=== PATIENT | female | born 1980 | race Caucasian/White ===

== ENCOUNTER 2016-11-28 12:16 | Observation (INO) | payer MEDICAID ==
[~2016-11-28] VITALS: Ht 154.9 cm; Wt 82.5 kg
[2016-11-28 12:19] VITALS: BP 126/70; PULSE 71; RESP 12; TEMP 98.1; O2SAT 99
[2016-11-28] MEDS ORDERED: [UNRECOGNIZED DRUG - REMARK] (12:55)
--- NOTE | 2016-11-28 15:57 | PD ---
HPI Chief Complaint: Respiratory Distress Time Seen by Provider: 15:57 Travel History International Travel<30 days: No Contact w/Intl Traveler<30days: No Traveled to known affect area: No History of Present Illness HPI 36-year-old female presents to the emergency department for evaluation of chest pain. Patient states that she was seen last year with chest pain. She states she also had chest pain approximate 3-5 months ago. She states this episode of chest pain started today and is similar to previous episodes. She also reports paresthesias intermittently to her bilateral hands. Patient states that she did have some paresthesias to her left arm and left leg, but these have resolved. Patient states she feels tired. Patient does not have a primary care physician. She denies any chronic medical problems or taking any prescribed medications. She denies any abdominal pain. No vomiting. She denies . 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 Patient denies any recent surgery or travel. She denies any history of blood clots. She denies being on control. No hemoptysis. No leg edema. PFSH Past Medical History Asthma: No Blood Disorders: No Anxiety: No Depression: No Heart Rhythm Problems: No Cancer: No Cardiovascular Problems: No High Cholesterol: No Chemotherapy: No Chest Pain: Yes Congestive Heart Failure: No COPD: No Diabetes: No Diminished Hearing: No Endocrine: No Genitourinary: No Immune Disorder: No Musculoskeletal: Yes (ARMS HURT) Neurologic: Yes (poss pseudotumor) Psychiatric: No Reproductive: Yes ( BLEEDING) Respiratory: Yes (SOB TODAY) Radiation Therapy: No Sleep Apnea: No Thyroid Disease: No : 0 Para: 4 Miscarriage: 0 : 0 Past Surgical History Other Surgery: No Social History Alcohol Use: No Tobacco Use: No Substance Use: No Allergies-Medications (Allergen,Severity, Reaction): Coded Allergies: Penicillin (Verified Allergy, Intermediate, rash, 11/28/16) Reported Meds & Prescriptions Reported Meds & Active Scripts Active Reported [weight loss pills] Unknown Dose Review of Systems Except as stated in HPI: all other systems reviewed are Neg Physical Exam Narrative GENERAL: Well-developed well-nourished female patient, ambulatory. Afebrile. SKIN: Warm and dry. HEAD: Normocephalic. Atraumatic. EYES: No scleral icterus. No injection or drainage. NECK: Supple, trachea midline. No JVD or lymphadenopathy. CARDIOVASCULAR: Regular rate and rhythm without murmurs, gallops, or rubs. RESPIRATORY: Breath sounds equal bilaterally. No accessory muscle use. Lungs sounds are clear to auscultation. GASTROINTESTINAL: Abdomen soft, non-tender, nondistended. MUSCULOSKELETAL: No cyanosis, or edema. Bilateral upper and lower extremity strength 5/5. All extremities are neurovascularly intact. BACK: Nontender without obvious deformity. No CVA tenderness. Data Data Last Documented VS Vital Signs Date Time Temp Pulse Resp B/P Pulse Ox O2 Delivery O2 Flow Rate FiO2 11/28/16 18:18 68 17 122/62 99 Room Air 11/28/16 12:19 98.1 Orders Electrocardiogram (11/28/16 15:56) Basic Metabolic Panel (Bmp) (11/28/16 15:56) Ckmb (Isoenzyme) Profile (11/28/16 15:56) Complete Blood Count With Diff (11/28/16 15:56) Magnesium (Mg) (11/28/16 15:56) Troponin I (11/28/16 15:56) Chest, Single Ap (11/28/16 15:56) Admit Order (Ed Use Only) (11/28/16 18:22) Labs Laboratory Tests Test 11/28/16 16:09 White Blood Count 9.0 TH/MM3 Red Blood Count 4.70 MIL/MM3 Hemoglobin 13.6 GM/DL Hematocrit 40.1 % Mean Corpuscular Volume 85.3 FL Mean Corpuscular Hemoglobin 28.9 PG Mean Corpuscular Hemoglobin 33.9 % Concent Red Cell Distribution Width 13.9 % Platelet Count 216 TH/MM3 Mean Platelet Volume 8.4 FL Neutrophils (%) (Auto) 77.8 % Lymphocytes (%) (Auto) 16.8 % Monocytes (%) (Auto) 4.9 % Eosinophils (%) (Auto) 0.1 % Basophils (%) (Auto) 0.4 % Neutrophils # (Auto) 7.0 TH/MM3 Lymphocytes # (Auto) 1.5 TH/MM3 Monocytes # (Auto) 0.4 TH/MM3 Eosinophils # (Auto) 0.0 TH/MM3 Basophils # (Auto) 0.0 TH/MM3 CBC Comment DIFF FINAL Differential Comment Sodium Level 140 MEQ/L Potassium Level 4.3 MEQ/L Chloride Level 107 MEQ/L Carbon Dioxide Level 26.4 MEQ/L Anion Gap 7 MEQ/L Blood Urea Nitrogen 11 MG/DL Creatinine 0.78 MG/DL Estimat Glomerular Filtration 84 ML/MIN Rate Random Glucose 91 MG/DL Calcium Level 8.8 MG/DL Magnesium Level 2.2 MG/DL Total Creatine Kinase 62 U/L Troponin I LESS THAN 0.02 NG/ML MDM Medical Decision Making Medical Screen Exam Complete: Yes Emergency Medical Condition: Yes Medical Record Reviewed: Yes Differential Diagnosis Chest wall pain versus anxiety versus ACS versus electrolyte abnormality Narrative Course 36-year-old female presents to the emergency department for evaluation of left- sided chest pain that started yesterday. She reports similar episodes in the past. Patient was seen and in January 2016 for dizziness and. Seizures. She was then seen in July 2016 for chest pain. EKG, CBC, BMP, CK, troponin, chest x-ray are ordered. Workup is initiated in triage. Once a medical bed becomes available, patient will be transferred and care assumed by that provider. Kiera Mckinley Nov 28, 2016 15:57
[2016-11-28 16:19] LABS: BASOPHIL % 0.4 % (0.0-2.0); EOSINOPHIL % 0.1 % (0.0-4.0); HEMATOCRIT 40.1 % (35.0-46.0); HEMO FLAGS DIFF FINAL; LYMPH % 16.8 % (9.0-44.0); LYMPHOCYTE # 1.5 TH/MM3 (1.0-4.8); MEAN CELL VOLUME 85.3 FL (80.0-100.0); MEAN CORPUSCULAR HEMOGLOBIN 28.9 PG (27.0-34.0); MEAN CORPUSCULAR HGB CONC 33.9 % (32.0-36.0); MONO % 4.9 % (0.0-8.0); NEUT % 77.8 % (16.0-70.0); PLATELET COUNT 216 TH/MM3 (150-450); RED CELL DISTRIBUTION WIDTH 13.9 % (11.6-17.2)
--- NOTE | 2016-11-28 16:29 | RADRPT ---
EXAM DATE/TIME: 11/28/2016 16:16 [facility] COMPARISON: CHEST PA & LAT, September 25, 2014, 8:18. CHEST SINGLE AP, August 04, 2016, 3:04. INDICATIONS : Chest pain. MEDICAL HISTORY : None. SURGICAL HISTORY : None. ENCOUNTER: Initial ACUITY: 1 day PAIN SCORE: 5/10 LOCATION: Left chest FINDINGS: A single view of the chest demonstrates the lungs to be symmetrically aerated without evidence of mas s, infiltrate or effusion. The cardiomediastinal contours are unremarkable. Osseous structures are intact. CONCLUSION: 1. No acute cardiopulmonary findings. Jerrell Duggan MD on November 28, 2016 at 16:27 Board Certified Radiologist. This report was verified electronically.
[2016-11-28 16:46] LABS: ANION GAP 7 MEQ/L (5-15); BICARBONATE 26.4 MEQ/L (21.0-32.0); BLOOD UREA NITROGEN 11 MG/DL (7-18); CHLORIDE 107 MEQ/L (98-107); GLOMERULAR FILTRATION RATE 84 ML/MIN (>89); MAGNESIUM 2.2 MG/DL (1.5-2.5); POTASSIUM 4.3 MEQ/L (3.5-5.1); SODIUM (NA) 140 MEQ/L (136-145)
[2016-11-28 16:50] LABS: CREATINE KINASE 62 U/L (26-192)
--- NOTE | 2016-11-28 18:14 | PD ---
Data Data Last Documented VS Vital Signs Date Time Temp Pulse Resp B/P Pulse Ox O2 Delivery O2 Flow Rate FiO2 11/28/16 18:01 69 18 99 Room Air 11/28/16 12:19 98.1 126/70 Orders Electrocardiogram (11/28/16 15:56) Basic Metabolic Panel (Bmp) (11/28/16 15:56) Ckmb (Isoenzyme) Profile (11/28/16 15:56) Complete Blood Count With Diff (11/28/16 15:56) Magnesium (Mg) (11/28/16 15:56) Troponin I (11/28/16 15:56) Chest, Single Ap (11/28/16 15:56) Labs Laboratory Tests Test 11/28/16 16:09 White Blood Count 9.0 TH/MM3 Red Blood Count 4.70 MIL/MM3 Hemoglobin 13.6 GM/DL Hematocrit 40.1 % Mean Corpuscular Volume 85.3 FL Mean Corpuscular Hemoglobin 28.9 PG Mean Corpuscular Hemoglobin 33.9 % Concent Red Cell Distribution Width 13.9 % Platelet Count 216 TH/MM3 Mean Platelet Volume 8.4 FL Neutrophils (%) (Auto) 77.8 % Lymphocytes (%) (Auto) 16.8 % Monocytes (%) (Auto) 4.9 % Eosinophils (%) (Auto) 0.1 % Basophils (%) (Auto) 0.4 % Neutrophils # (Auto) 7.0 TH/MM3 Lymphocytes # (Auto) 1.5 TH/MM3 Monocytes # (Auto) 0.4 TH/MM3 Eosinophils # (Auto) 0.0 TH/MM3 Basophils # (Auto) 0.0 TH/MM3 CBC Comment DIFF FINAL Differential Comment Sodium Level 140 MEQ/L Potassium Level 4.3 MEQ/L Chloride Level 107 MEQ/L Carbon Dioxide Level 26.4 MEQ/L Anion Gap 7 MEQ/L Blood Urea Nitrogen 11 MG/DL Creatinine 0.78 MG/DL Estimat Glomerular Filtration 84 ML/MIN Rate Random Glucose 91 MG/DL Calcium Level 8.8 MG/DL Magnesium Level 2.2 MG/DL Total Creatine Kinase 62 U/L Troponin I LESS THAN 0.02 NG/ML MDM Supervised Visit with OLIVIA: Yes Narrative Course I have reviewed the patient's electronic medical record. I reviewed her July ER visit for chest pain. There is documentation that the patient reported having a normal stress test within the last year. Using public works commissioner, she totally contradicts that and says she's never had stress testing. She also denies having a primary physician. Reportedly her father of an [place] at age 42. She describes a sternal area pressure and heaviness that radiates to her left shoulder. Her workup appears entirely negative but given this family history and repeated visits for chest pain without any definitive testing that I can identify, I am going to make her a 23 hour observation in the chest pain center to rule out cardiac cause of her systems. Diagnosis Primary Impression: Chest pain Qualified Code: R07.2 - Precordial pain Admitting Information Admitting Physician Requests: Observation Myles Vasquez MD Nov 28, 2016 18:14
[2016-11-28 18:18] VITALS: BP 122/62; PULSE 68; RESP 17; O2SAT 99
[2016-11-28] MEDS ORDERED: ONDANSETRON HCL 4 MG/2 ML VIAL IV PRN (18:45)
[2016-11-28] MEDS ORDERED: SODIUM CHLORIDE 0.9% FLUSH 5 ML FLUSH IVF PRN (18:45)
[2016-11-28 20:08] VITALS: BP 125/76; PULSE 58; RESP 18; TEMP 98.6; O2SAT 100
[2016-11-28 20:10] VITALS: PULSE 56
[2016-11-28 20:11] LABS: CREATINE KINASE 52 U/L (26-192)
[2016-11-28 23:02] LABS: CREATINE KINASE 48 U/L (26-192)
[2016-11-28 23:19] VITALS: PULSE 60
[2016-11-28] MEDS: SODIUM CHLORIDE 0.9% FLUSH 5 ML FLUSH IVF SCH (23:22)
[2016-11-29] VITALS (8 sets, daily range): BP systolic 84–103; BP diastolic 46–63; PULSE 54–72; RESP 18–20; TEMP 97.7–98.4; O2SAT 96–100
[2016-11-29] MEDS ORDERED: ACETAMINOPHEN 500 MG CPLT PO PRN (07:30)
[2016-11-29] MEDS ORDERED: NITROGLYCERIN 0.4 MG SL 25 TABS/BTL SL PRN (07:30)
[2016-11-29] MEDS: SODIUM CHLORIDE 0.9% FLUSH 5 ML FLUSH IVF SCH (08:07)
[2016-11-29] MEDS ORDERED: ASPIRIN 325 MG TAB PO SCH ×2 (09:00)
--- NOTE | 2016-11-29 09:22 | HHI.HP ---
HPI Primary Care Physician Primary Care Physician in [place]. Chief Complaint Chest pain History of Present Illness 36-year-old patient presents to the emergency room for further evaluation of chest pressure and palpitations. While at work yesterday she drank a cup of coffee and a half an hour later she ate a pear and took her "diet pill." Approximately 30 minutes after taking diet pill she developed chest pressure and palpitations. She left work went home to rest. Continued to experience chest discomfort lasted approximately 3 hours. She was mildly short of breath, no nausea or diaphoresis. No relieving factors. No radiation of her chest discomfort. She has had chest pain in the past, however past episodes did not last as long as yesterday's episode. 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 Review of Systems General: No fatigue,weakness, fever, chills, or recent illness. Reports taking a diet pill prescribed by her primary care provider. Has lost approximately 40 pounds with diet pill, since July. She takes half a tablet as she stay " hole tablet is too much for me. HEENT: No POWERS, no vision changes, no nasal congestion or drainage, no dysphasia CV: Chest pressure and palpitations as stated above. No intermittent leg pain or dizziness RESP: Mild SOB during yesterday's episode. Shortness of breath has resolved. No cough cough, wheeze, or recent upper respiratory infection GI: No nausea or vomiting, bowel changes, diarrhea, constipation, pain, distention, melena, blood in the stool : No dysuria, urgency, frequency, hematuria, or history of kidney stones EXT: No lower leg edema, no parathesias MS: No discomfort or change in ROM NEURO: No change in memory, dizziness, difficulty with balance, LOC, motor/ sensory deficits PSYCH: No anxiety, depression, suicidal ideation Past Family Social History Allergies: Coded Allergies: Penicillin (Verified Allergy, Intermediate, rash, 11/28/16) Reported Medications Reports taking a "diet pill" prescribed by her primary care physician. However his been taking only half of prescribed tablet. No vitamin, supplements, [id number] medications Active Ordered Medications Current Medications Medications (Trade) Dose Ordered Sig/Jas Route Start Time Stop Time Status Last Admin (Zofran Inj) 4 mg Q6H PRN IV 11/28/16 18:45 (Tylenol) 500 mg Q4H PRN PO 11/29/16 07:30 (Nitrostat Sl) 0.4 mg Q5M PRN SL 11/29/16 07:30 (Aspirin) 325 mg DAILY PO 11/29/16 09:00 11/29/16 08:07 Family History Father had MA at age 42 he was diabetic. Mother of cancer. Sister cancer one year ago. Social History She is , has 4 children ages 3-18. 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 She reports being sedentary. She does not smoke, denies alcohol or illegal drug use. No known hypertension, diabetes, or hyperlipidemia. Physical Exam Vital Signs Vital Signs Date Time Temp Pulse Resp B/P Pulse Ox O2 Delivery O2 Flow Rate FiO2 11/29/16 07:24 98.0 60 20 84/46 96 11/29/16 05:16 98.3 54 18 103/63 99 11/29/16 04:24 60 11/29/16 04:16 100 11/29/16 00:29 98.4 59 18 101/52 100 11/28/16 23:19 60 11/28/16 20:10 56 11/28/16 20:08 98.6 58 18 125/76 100 11/28/16 18:18 68 17 122/62 99 Room Air 11/28/16 18:01 69 18 99 Room Air 11/28/16 12:19 98.1 71 12 126/70 99 Room Air Physical Exam GENERAL: Alert WN, WD, NAD, pleasant, female HEAD: NC, AT EYES: Sclera clear, conjunctiva without injection, pupils equal and round ENT: Mucous membranes pink and moist NECK: Supple, no masses, trachea midline CV: RRR, without murmur, rub, gallop, no JVD, S1-S2 no S3-S4. No carotid bruits RESP: Clear lungs throughout bilateral, no crackles, wheeze, rhonchi, symmetrical chest rise, nonlabored, able to speak in full sentences ABD: Soft, NT, ND, no masses, positive bowel tones BACK: no scoliosis EXT: Pulses +24, no dependent edema MS: Normal tone 4 extremities, nontender, no obvious deformities, full range of motion NEURO: CN II through CN XII grossly intact, motor strength 5/5, gait WNL PSYCH: A+O 3, pleasant affect, appropriate speech, appropriate mood and affect , insight and judgment SKIN: Normal turgor, normal texture, no lesions, no rashes, brisk cap refill, even hair distribution Laboratory Laboratory Tests Test 11/28/16 11/28/16 11/28/16 16:09 19:25 22:20 White Blood Count 9.0 Red Blood Count 4.70 Hemoglobin 13.6 Hematocrit 40.1 Mean Corpuscular Volume 85.3 Mean Corpuscular Hemoglobin 28.9 Mean Corpuscular Hemoglobin 33.9 Concent Red Cell Distribution Width 13.9 Platelet Count 216 Mean Platelet Volume 8.4 Neutrophils (%) (Auto) 77.8 Lymphocytes (%) (Auto) 16.8 Monocytes (%) (Auto) 4.9 Eosinophils (%) (Auto) 0.1 Basophils (%) (Auto) 0.4 Neutrophils # (Auto) 7.0 Lymphocytes # (Auto) 1.5 Monocytes # (Auto) 0.4 Eosinophils # (Auto) 0.0 Basophils # (Auto) 0.0 CBC Comment DIFF FINAL Differential Comment Sodium Level 140 Potassium Level 4.3 Chloride Level 107 Carbon Dioxide Level 26.4 Anion Gap 7 Blood Urea Nitrogen 11 Creatinine 0.78 Estimat Glomerular Filtration 84 Rate Random Glucose 91 Calcium Level 8.8 Magnesium Level 2.2 Total Creatine Kinase 62 52 48 Troponin I LESS THAN 0.02 LESS THAN 0.02 LESS THAN 0.02 Result Diagram: 11/28/16 1609 11/28/16 1609 Imaging Last Impressions Chest X-Ray 11/28/16 1556 Signed Impressions: Service Date/Time: Monday, November 28, 2016 16:16 - CONCLUSION: 1. No acute cardiopulmonary findings. Jerrell Duggan MD Course EKGs Normal sinus rhythm, normal access, with no ST or T-segment changes Assessment and Plan Assessment and Plan #1 Chest painpatient admitted to the chest pain center. She was ruled out with 3 sets of EKGs, cardiac enzymes, and monitor throughout evening. Was seen and evaluated by Dr. Toribio Garcia. Discussed with patient next step would be to complete an exercise stress test to reassure her her chest discomfort is not cardiac in nature. She is agreeable to this plan of care. Naturally if stress test is unremarkable she'll be later discharged this morning. She is encouraged to keep scheduled appointment with primary care provider in 2 weeks to discuss further instruction regarding her diet pill prescription. She is agreeable to this plan of care. Marjorie Pino Nov 29, 2016 09:22
--- NOTE | 2016-11-29 10:05 | HHI.DCPOC ---
Discharge Care Plan Diagnosis: (1) Atypical chest pain Goals to Promote Your Health * To prevent worsening of your condition and complications * To maintain your health at the optimal level Directions to Meet Your Goals Take your medications as prescribed Follow your dietary instruction Follow activity as directed Keep your appointments as scheduled Take your immunizations and boosters as scheduled If your symptoms worsen call your PCP, if no PCP go to Urgent Care Center or Emergency Room Smoking is Dangerous to Your Health. Avoid second hand smoke Call the 24-hour hour crisis hotline for domestic abuse at Marjorie Pino Nov 29, 2016 10:04
--- NOTE | 2016-12-01 17:01 | EKG ---
Date Performed: 11/28/2016 Time Performed: 22:27:26 PTAGE: 36 years EKG: SINUS BRADYCARDIA BORDERLINE ECG PREVIOUS TRACING : 11/28/2016 19.24 Since previous tracing, no significant change noted DOCTOR: Toribio Garcia Interpretating Date/Time 12/01/2016 16:55:45
--- NOTE | 2016-12-01 17:02 | EKG ---
Date Performed: 11/28/2016 Time Performed: 16:19:58 PTAGE: 36 years EKG: Sinus rhythm BORDERLINE ECG PREVIOUS TRACING : 08/04/2016 01.55 Since previous tracing, no significant change noted DOCTOR: Toribio Garcia Interpretating Date/Time 12/01/2016 16:56:26
--- NOTE | 2016-12-01 17:02 | EKG ---
Date Performed: 11/28/2016 Time Performed: 19:24:38 PTAGE: 36 years EKG: Sinus rhythm WITH SINUS ARRHYTHMIA NORMAL ECG PREVIOUS TRACING : 11/28/2016 16.19 Since previous tracing, no significant change noted DOCTOR: Toribio Garcia Interpretating Date/Time 12/01/2016 16:56:11
--- NOTE | 2016-12-01 17:16 | TR ---
Date Performed: 11/29/2016 Time Performed: 09:31:55 DOCTOR: Toribio Garcia DRUG LIST: CLINICAL HISTORY: REASON FOR TEST: REASON FOR ENDING: OBSERVATION: CONCLUSION: Robert protocol completed. Stopped sec to reaching target heart rate and leg fatigue. Maximum JC=845 Target HR Achieved=86.0% Maximum XP=897/62 Total Exercise Time=11:49. No reprod chest pain. Good exercise tolerance. No ectopy. No st t seg changes to sugg ischemia. Normal bp response. Recovery quick and unremarkable. COMMENTS: Patient exercised using the Robert protocol. No electrocardiographic changes were seen to suggest ischemia. Hemodynamic response to exercise was normal. No significant arrhythmia was prese nt.
== END 2016-11-29 15:23 | disposition home or self-care (01) ==
LOC: NEPE 12:16 → NEDA 18:32 → NEPHCDU 19:53 → NEDA 21:30
PROVIDERS: ADMIT Internal Medicine Interventional Cardiology; ATTEND Internal Medicine Interventional Cardiology
DX: R07.89 Other chest pain (principal); R53.83 Other fatigue; R06.02 Shortness of breath; M79.602 Pain in left arm; M79.601 Pain in right arm; Z82.49 Family history of ischemic heart disease and other diseases of the circulatory system; Z80.9 Family history of malignant neoplasm, unspecified
CPT/HCPCS: 71010; 80048; 82550; 83735; 84484; 85025; 93005; 93017; 99285; G0378

== ENCOUNTER 2017-08-01 17:29 | Emergency (ER) | payer MEDICAID ==
[~2017-08-01] VITALS: Ht 154.9 cm; Wt 92.0 kg
[~2017-08-01 17:29] MED LIST: [UNRECOGNIZED DRUG - REMARK]
[2017-08-01 17:31] VITALS: BP 166/72; PULSE 50; RESP 16; TEMP 98.3; O2SAT 100
[2017-08-01 18:04] LABS: AUTOMATED NEUTROPHIL # 2.3 TH/MM3 (1.8-7.7); BASOPHIL % 0.7 % (0.0-2.0); EOSINOPHIL # 0.1 TH/MM3 (0-0.4); EOSINOPHIL % 1.1 % (0.0-4.0); HEMO FLAGS DIFF FINAL; LYMPH % 47.4 % (9.0-44.0); LYMPHOCYTE # 2.5 TH/MM3 (1.0-4.8); MEAN CELL VOLUME 87.2 FL (80.0-100.0); MEAN CORPUSCULAR HEMOGLOBIN 29.4 PG (27.0-34.0); MEAN CORPUSCULAR HGB CONC 33.7 % (32.0-36.0); MONO % 7.6 % (0.0-8.0); NEUT % 43.2 % (16.0-70.0); PLATELET COUNT 200 TH/MM3 (150-450); RED BLOOD COUNT 4.47 MIL/MM3 (4.00-5.30); WHITE BLOOD COUNT 5.3 TH/MM3 (4.0-11.0)
[2017-08-01 18:29] LABS: ANION GAP 6 MEQ/L (5-15); AST (GOT) 17 U/L (15-37); BICARBONATE 27.9 MEQ/L (21.0-32.0); BLOOD UREA NITROGEN 8 MG/DL (7-18); CHLORIDE 107 MEQ/L (98-107); GLOMERULAR FILTRATION RATE 80 ML/MIN (>89); POTASSIUM 3.8 MEQ/L (3.5-5.1); SODIUM (NA) 141 MEQ/L (136-145)
[2017-08-01 18:31] LABS: ALT (GPT) 31 U/L (10-53)
[2017-08-01 18:33] LABS: ALKALINE PHOSPHATASE 61 U/L (45-117); TOTAL BILIRUBIN ADULT 0.3 MG/DL (0.2-1.0)
--- NOTE | 2017-08-01 20:57 | PD ---
HPI Chief Complaint: Dizziness Time Seen by Provider: 20:45 Travel History International Travel<30 days: No Contact w/Intl Traveler<30days: No Traveled to known affect area: No History of Present Illness HPI The patient is Vincentian-speaking and prefers to use her daughter for translation. 37-year-old female here for evaluation of chest pain, lightheadedness, and dizziness. Patient reports intermittent episodes of the aforementioned symptoms over the last 2 days. She reports that her chest pain is substernal and is exertional. She becomes nauseous. She describes the pain as burning and pressure-like. No known history of cardiac disease. Her father of a heart attack at the age of 47. No dyspnea. No abdominal pain. Currently the chest pain is minimal. She smokes about 6 or 7 cigarettes daily. PFSH Past Medical History Asthma: No Blood Disorders: No Anxiety: No Depression: No Heart Rhythm Problems: No Cancer: No Cardiovascular Problems: No High Cholesterol: No Chemotherapy: No Chest Pain: Yes Congestive Heart Failure: No COPD: No Diabetes: No Diminished Hearing: No Endocrine: No Genitourinary: No Immune Disorder: No Musculoskeletal: Yes (ARMS HURT) Neurologic: Yes (poss pseudotumor) Psychiatric: No Reproductive: Yes ( BLEEDING) Respiratory: Yes (SOB TODAY) Radiation Therapy: No Sleep Apnea: No Thyroid Disease: No ?: Not LMP: ONE WEEK AGO : 4 Para: 4 Miscarriage: 0 : 0 Past Surgical History Other Surgery: No Social History Alcohol Use: No Tobacco Use: No Substance Use: No Allergies-Medications (Allergen,Severity, Reaction): Coded Allergies: penicillin G (Unverified Allergy, Intermediate, rash, 05/29/17) Reported Meds & Prescriptions Reported Meds & Active Scripts Active Reported [weight loss pills] Unknown Dose Review of Systems Except as stated in HPI: all other systems reviewed are Neg Physical Exam Narrative GENERAL: Well-developed, well-nourished, overweight, comfortable, no apparent distress. SKIN: Focused skin assessment warm/dry. HEAD: Atraumatic. Normocephalic. EYES: Pupils equal and round. No scleral icterus. No injection or drainage. ENT: Mucous membranes pink and moist. NECK: Trachea midline. No JVD. CARDIOVASCULAR: Regular rate and rhythm. No murmur appreciated. RESPIRATORY: No accessory muscle use. Clear to auscultation. Breath sounds equal bilaterally. GASTROINTESTINAL: Abdomen soft, non-tender, nondistended. MUSCULOSKELETAL: No obvious deformities. No clubbing. No cyanosis. No edema. NEUROLOGICAL: Awake and alert. No obvious cranial nerve deficits. Motor grossly within normal limits. Normal speech. PSYCHIATRIC: Appropriate mood and affect; insight and judgment normal. Data Data Last Documented VS Vital Signs Date Time Temp Pulse Resp B/P (MAP) Pulse Ox O2 Delivery O2 Flow Rate FiO2 08/01/17 17:31 98.3 50 16 166/72 (103) 100 Room Air Orders Orders Electrocardiogram (08/01/17 17:45) Complete Blood Count With Diff (08/01/17 17:45) Comprehensive Metabolic Panel (08/01/17 17:45) Iv Access Insert/Monitor (08/01/17 17:45) Ckmb (Isoenzyme) Profile (08/01/17 20:51) Troponin I (08/01/17 20:51) Lipase (08/01/17 20:51) Chest, Single Ap (08/01/17 20:51) Aspirin Chew (Aspirin Chew) (08/01/17 21:00) Beta Hcg (Quant/Titer) (08/01/17 20:51) Urinalysis - C+S If Indicated (08/01/17 20:51) Al-Mag Hy-Si 40-40-4 Mg/Ml Liq (Mag-Al P (08/01/17 21:00) Lidocaine 2% Viscous (Xylocaine 2% Visco (08/01/17 21:00) Labs Laboratory Tests Test 08/01/17 17:53 08/01/17 21:00 White Blood Count 5.3 TH/MM3 Red Blood Count 4.47 MIL/MM3 Hemoglobin 13.1 GM/DL Hematocrit 39.0 % Mean Corpuscular Volume 87.2 FL Mean Corpuscular Hemoglobin 29.4 PG Mean Corpuscular Hemoglobin Concent 33.7 % Red Cell Distribution Width 14.0 % Platelet Count 200 TH/MM3 Mean Platelet Volume 8.4 FL Neutrophils (%) (Auto) 43.2 % Lymphocytes (%) (Auto) 47.4 % Monocytes (%) (Auto) 7.6 % Eosinophils (%) (Auto) 1.1 % Basophils (%) (Auto) 0.7 % Neutrophils # (Auto) 2.3 TH/MM3 Lymphocytes # (Auto) 2.5 TH/MM3 Monocytes # (Auto) 0.4 TH/MM3 Eosinophils # (Auto) 0.1 TH/MM3 Basophils # (Auto) 0.0 TH/MM3 CBC Comment DIFF FINAL Differential Comment Blood Urea Nitrogen 8 MG/DL Creatinine 0.81 MG/DL Random Glucose 107 MG/DL Total Protein 7.4 GM/DL Albumin 3.8 GM/DL Calcium Level 9.0 MG/DL Alkaline Phosphatase 61 U/L Aspartate Amino Transf (AST/SGOT) 17 U/L Alanine Aminotransferase (ALT/SGPT) 31 U/L Total Bilirubin 0.3 MG/DL Sodium Level 141 MEQ/L Potassium Level 3.8 MEQ/L Chloride Level 107 MEQ/L Carbon Dioxide Level 27.9 MEQ/L Anion Gap 6 MEQ/L Estimat Glomerular Filtration Rate 80 ML/MIN Total Creatine Kinase 56 U/L Troponin I LESS THAN 0.02 NG/ML Lipase 168 U/L Human Chorionic Gonadotropin, Quant LESS THAN 1 MIU/ML Urine Color YELLOW Urine Turbidity HAZY Urine pH 7.0 Urine Specific [place] 1.010 Urine Protein NEG mg/dL Urine Glucose (UA) NEG mg/dL Urine Ketones NEG mg/dL Urine Occult Blood NEG Urine Nitrite NEG Urine Bilirubin NEG Urine Urobilinogen LESS THAN 2.0 MG/DL Urine Leukocyte Esterase NEG Urine RBC LESS THAN 1 /hpf Urine WBC LESS THAN 1 /hpf Urine Squamous Epithelial Cells 2 /hpf Urine Bacteria RARE /hpf Urine Mucus FEW /lpf Microscopic Urinalysis Comment CULT NOT INDICATED MDM Medical Decision Making Medical Screen Exam Complete: Yes Emergency Medical Condition: Yes Interpretation(s) EKG: Sinus, rate 48, normal axis, normal intervals, no acute ischemic abnormality. Differential Diagnosis ACS, pneumothorax, pericarditis, PE, pneumonia, GERD, pancreatitis, gastritis, symptomatic bradycardia Narrative Course Initial vital signs show heart rate 50, blood pressure 166/72, pulse ox 100% on room air, oral temp of 98.3F. CBC is unremarkable. CMP is unremarkable. Lipase is 168. Beta hCG is negative. Cardiac enzymes are negative. Chest x-ray: No acute disease. No significant change has occurred. The patient was given a GI cocktail and reports that her pain/burning sensation in her chest has resolved. Chart review shows that the patient was admitted to the chest pain center in November of this year and had a normal exercise stress test. I do not believe her chest pain is cardiac in nature. Patient also reports that she no longer feels dizzy. She hasn't 0.0 with a primary care physician tomorrow. I told her I would like to admit her again to the chest pain center, however she prefers to be discharged home and follow-up with her primary care physician tomorrow. She was informed on when to return to the emergency department. She verbalizes understanding and agreement with plan. Diagnosis Primary Impression: Atypical chest pain Referrals: Primary Care Physician 1 day Additional Instructions: Follow-up with your primary care physician tomorrow as scheduled. Return to the emergency department for worsening symptoms or any other concerns. Disposition: 01 DISCHARGE HOME Condition: Stable Sergio Li MD Aug 01, 2017 20:57
[2017-08-01] MEDS ORDERED: LIDOCAINE VISCOUS 2% SOLN 15 ML UDC PO ONE (21:00)
[2017-08-01] MEDS ORDERED: ASPIRIN 81 MG CHEW TAB PO ONE (21:00)
[2017-08-01] MEDS ORDERED: ALUMINUM/MAGNESIUM/SIMETH 30 ML CUP PO ONE (21:00)
--- NOTE | 2017-08-01 21:14 | RADRPT ---
EXAM DATE/TIME: 08/01/2017 20:51 [facility] COMPARISON: CHEST SINGLE AP, November 28, 2016, 16:16. INDICATIONS : Chest pain. MEDICAL HISTORY : None. SURGICAL HISTORY : None. ENCOUNTER: Initial ACUITY: 1 day PAIN SCORE: 10 LOCATION: Bilateral chest FINDINGS: A single view of the chest demonstrates the lungs to be symmetrically aerated without evidence of mas s, infiltrate or effusion. The cardiomediastinal contours are unremarkable. Osseous structures are intact. CONCLUSION: No acute disease. No significant change has occurred. Richard Collins MD on August 01, 2017 at 21:12 Board Certified Radiologist. This report was verified electronically.
[2017-08-01 21:25] LABS: BACTERIA, URINE RARE /hpf; BLOOD, URINE NEG (NEG); COMMENT (UR) CULT NOT INDICATED; CULTURE IF INDICATED CULT NOT INDICATED; GLUCOSE,URINE NEG (NEG); KETONE, URINE NEG (NEG); MUCUS URINE FEW /lpf (OCC); NITRITE,URINE NEG (NEG); SQUAMOUS EPITHELIAL CELL URINE 2 /hpf (0-5); URINE COLOR YELLOW (YELLW/STRAW)
[2017-08-01 21:49] LABS: BETA HCG QUANT LESS THAN 1 MIU/ML (0-5)
[2017-08-01 22:01] LABS: CREATINE KINASE 56 U/L (26-192)
--- NOTE | 2017-08-02 11:33 | EKG ---
Date Performed: 08/01/2017 Time Performed: 17:49:50 PTAGE: 37 years EKG: SINUS BRADYCARDIA BORDERLINE ECG Compared to prior tracing no significant change PREVIOUS TRACING : 11/28/2016 22.27 DOCTOR: Todd Jain Interpretating Date/Time 08/02/2017 11:29:09
[2017-08-10] MEDS ORDERED: ZANT150T2 PO (12:11)
[2017-08-10] MEDS ORDERED: TYLETAB34 PO (12:11)
== END 2017-08-01 22:21 | disposition home or self-care (01) ==
LOC: NEPD 17:29
DX: R07.89 Other chest pain (principal); R94.31 Abnormal electrocardiogram [ECG] [EKG]
CPT/HCPCS: 71010; 80053; 81001; 82550; 83690; 84484; 84702; 85025; 93005; 99285

== ENCOUNTER 2017-08-10 09:27 | Emergency (ER) | payer MEDICAID ==
[~2017-08-10] VITALS: Ht 160 cm; Wt 91.0 kg
[2017-08-10 09:28] VITALS: BP 133/66; PULSE 53; RESP 15; TEMP 98.8; O2SAT 99
[2017-08-10 09:42] VITALS: BP 142/72; PULSE 55; RESP 17; TEMP 99.2; O2SAT 99
[2017-08-10] MEDS ORDERED: SODIUM CHLOR 0.9% 1000 ML INJ 1,000 ML IV SCH ×2 (09:58)
[2017-08-10] MEDS ORDERED: KETOROLAC TROMETHAMINE 30 MG/ML (IVP) VIAL IVP ONE ×2 (10:00)
[2017-08-10] MEDS ORDERED: ONDANSETRON HCL 4 MG/2 ML VIAL IVP ONE ×2 (10:00)
[2017-08-10] MEDS ORDERED: SODIUM CHLORIDE 0.9% FLUSH 10 ML FLUSH IV FLUSH PRN ×2 (10:00)
[2017-08-10] MEDS ORDERED: MORPHINE SULFATE 4 MG/ML INJ IV PUSH ONE ×2 (10:00)
--- NOTE | 2017-08-10 10:12 | PD ---
HPI Chief Complaint: GI Complaint Time Seen by Provider: 09:52 Travel History International Travel<30 days: No Contact w/Intl Traveler<30days: No Traveled to known affect area: No History of Present Illness HPI The patient is a 37-year-old female who presents to the emergency department for left-sided chest pain and upper abdominal pain. The patient has a history of recurrent left-sided chest pain and upper abdominal pain, was recently admitted to the hospital for over 2017 for similar symptoms and underwent a stress test was negative. The patient states she's had some intermittent pain over the last week, was seen in the emergency department one week ago, however, her symptoms have progressed. The pain is located over the left aspect of the chest in the lower part, as well as the left upper abdomen. She does complain of mild nausea without any vomiting. She also complains of intermittent shortness of breath secondary to the pain. She denies any history of pulmonary embolism or previous DVT. Symptoms are moderate without any alleviating or exacerbating factors. She denies any known history of gallstones denies any fever, chills, or sweats. PFSH Past Medical History Medical History: Denies Significant Hx Asthma: No Blood Disorders: No Anxiety: No Depression: No Heart Rhythm Problems: No Cancer: No Cardiovascular Problems: No High Cholesterol: No Chemotherapy: No Chest Pain: Yes Congestive Heart Failure: No COPD: No Diabetes: No Diminished Hearing: No Endocrine: No Genitourinary: No Immune Disorder: No Musculoskeletal: Yes (ARMS HURT) Neurologic: Yes (poss pseudotumor) Psychiatric: No Reproductive: Yes ( BLEEDING) Radiation Therapy: No Sleep Apnea: No Thyroid Disease: No ?: Unknown : 4 Para: 4 Miscarriage: 0 : 0 Past Surgical History Surgical History: No Previous Surgery Other Surgery: No Social History Alcohol Use: No Tobacco Use: No Substance Use: No Allergies-Medications (Allergen,Severity, Reaction): Coded Allergies: penicillin G (Unverified Allergy, Intermediate, rash, 05/29/17) Reported Meds & Prescriptions Reported Meds & Active Scripts Active No Active Prescriptions or Reported Medications Review of Systems Except as stated in HPI: all other systems reviewed are Neg General / Constitutional: No: Fever Cardiovascular: Positive: Chest Pain or Discomfort Respiratory: Positive: Shortness of Breath Gastrointestinal: Positive: Nausea, Abdominal Pain, No: Vomiting Genitourinary: No: Dysuria Physical Exam Narrative GENERAL: Awake, alert, pleasant 37-year-old female appears her stated age and is in no acute respiratory distress. SKIN: Focused skin assessment warm/dry. HEAD: Atraumatic. Normocephalic. EYES: Pupils equal and round. No scleral icterus. No injection or drainage. ENT: No nasal bleeding or discharge. Mucous membranes pink and moist. NECK: Trachea midline. No JVD. CARDIOVASCULAR: Regular rate and rhythm. No murmur appreciated. No palpation left chest wall. RESPIRATORY: No accessory muscle use. Clear to auscultation. Breath sounds equal bilaterally. GASTROINTESTINAL: Abdomen soft, tender palpation epigastrium and left upper quadrant. Back: No CVA tenderness. MUSCULOSKELETAL: No obvious deformities. No clubbing. No cyanosis. No edema. NEUROLOGICAL: Awake and alert. No obvious cranial nerve deficits. Motor grossly within normal limits. Normal speech. PSYCHIATRIC: Appropriate mood and affect; insight and judgment normal. Data Data Last Documented VS Vital Signs Date Time Temp Pulse Resp B/P (MAP) Pulse Ox O2 Delivery O2 Flow Rate FiO2 08/10/17 10:48 99 Room Air 08/10/17 09:42 99.2 55 17 Orders Orders Complete Blood Count With Diff (08/10/17 09:58) Comprehensive Metabolic Panel (08/10/17 09:58) Lipase (08/10/17 09:58) Ct Abd/Pel W/O Iv Contrast (08/10/17 09:58) Iv Access Insert/Monitor (08/10/17 09:58) Ecg Monitoring (08/10/17 09:58) Oximetry (08/10/17 09:58) Morphine Inj (Morphine Inj) (08/10/17 10:00) Ondansetron Inj (Zofran Inj) (08/10/17 10:00) Sodium Chlor 0.9% 1000 Ml Inj (Ns 1000 M (08/10/17 09:58) Sodium Chloride 0.9% Flush (Ns Flush) (08/10/17 10:00) Ketorolac Inj (Toradol Inj) (08/10/17 10:00) Troponin I (08/10/17 09:58) Creatine Kinase (Cpk) (08/10/17 09:58) Labs Laboratory Tests Test 08/10/17 10:10 White Blood Count 6.0 TH/MM3 Red Blood Count 4.67 MIL/MM3 Hemoglobin 13.6 GM/DL Hematocrit 40.6 % Mean Corpuscular Volume 87.1 FL Mean Corpuscular Hemoglobin 29.2 PG Mean Corpuscular Hemoglobin Concent 33.6 % Red Cell Distribution Width 14.2 % Platelet Count 203 TH/MM3 Mean Platelet Volume 8.5 FL Neutrophils (%) (Auto) 47.5 % Lymphocytes (%) (Auto) 43.2 % Monocytes (%) (Auto) 7.7 % Eosinophils (%) (Auto) 1.1 % Basophils (%) (Auto) 0.5 % Neutrophils # (Auto) 2.9 TH/MM3 Lymphocytes # (Auto) 2.6 TH/MM3 Monocytes # (Auto) 0.5 TH/MM3 Eosinophils # (Auto) 0.1 TH/MM3 Basophils # (Auto) 0.0 TH/MM3 CBC Comment DIFF FINAL Differential Comment Blood Urea Nitrogen 11 MG/DL Creatinine 0.75 MG/DL Random Glucose 94 MG/DL Total Protein 7.7 GM/DL Albumin 3.8 GM/DL Calcium Level 8.9 MG/DL Alkaline Phosphatase 71 U/L Aspartate Amino Transf (AST/SGOT) 59 U/L Alanine Aminotransferase (ALT/SGPT) 104 U/L Total Bilirubin 0.3 MG/DL Sodium Level 140 MEQ/L Potassium Level 4.1 MEQ/L Chloride Level 107 MEQ/L Carbon Dioxide Level 26.1 MEQ/L Anion Gap 7 MEQ/L Estimat Glomerular Filtration Rate 87 ML/MIN Total Creatine Kinase 51 U/L Troponin I LESS THAN 0.02 NG/ML Lipase 126 U/L MDM Medical Decision Making Medical Screen Exam Complete: Yes Emergency Medical Condition: Yes Medical Record Reviewed: Yes Interpretation(s) EKG reveals sinus bradycardia with a heart rate of 52. No ischemic changes noted. Last Impressions Abdomen/Pelvis CT 08/10/17 0958 Signed Impressions: Service Date/Time: Thursday, August 10, 2017 10:13 - CONCLUSION: Negative noncontrast CT abdomen/pelvis. Lenin Espinoza MD Laboratory Tests Test 08/10/17 10:10 White Blood Count 6.0 TH/MM3 Red Blood Count 4.67 MIL/MM3 Hemoglobin 13.6 GM/DL Hematocrit 40.6 % Mean Corpuscular Volume 87.1 FL Mean Corpuscular Hemoglobin 29.2 PG Mean Corpuscular Hemoglobin Concent 33.6 % Red Cell Distribution Width 14.2 % Platelet Count 203 TH/MM3 Mean Platelet Volume 8.5 FL Neutrophils (%) (Auto) 47.5 % Lymphocytes (%) (Auto) 43.2 % Monocytes (%) (Auto) 7.7 % Eosinophils (%) (Auto) 1.1 % Basophils (%) (Auto) 0.5 % Neutrophils # (Auto) 2.9 TH/MM3 Lymphocytes # (Auto) 2.6 TH/MM3 Monocytes # (Auto) 0.5 TH/MM3 Eosinophils # (Auto) 0.1 TH/MM3 Basophils # (Auto) 0.0 TH/MM3 CBC Comment DIFF FINAL Differential Comment Blood Urea Nitrogen 11 MG/DL Creatinine 0.75 MG/DL Random Glucose 94 MG/DL Total Protein 7.7 GM/DL Albumin 3.8 GM/DL Calcium Level 8.9 MG/DL Alkaline Phosphatase 71 U/L Aspartate Amino Transf (AST/SGOT) 59 U/L Alanine Aminotransferase (ALT/SGPT) 104 U/L Total Bilirubin 0.3 MG/DL Sodium Level 140 MEQ/L Potassium Level 4.1 MEQ/L Chloride Level 107 MEQ/L Carbon Dioxide Level 26.1 MEQ/L Anion Gap 7 MEQ/L Estimat Glomerular Filtration Rate 87 ML/MIN Total Creatine Kinase 51 U/L Troponin I LESS THAN 0.02 NG/ML Lipase 126 U/L Differential Diagnosis Differential diagnosis includes gastritis, pancreatitis, atypical cholecystitis , diverticulitis, inferior pulmonary embolism, ACS, pneumonia, pleural effusion. Narrative Course IV was established, labs are drawn and sent, and the patient was placed on cardiac telemetry monitoring and continuous pulse oximetry monitoring. EKG was ordered and interpreted. The patient's O2 saturation is normal, there is no tachycardia, I do not believe the patient has a pulmonary embolism. I did review the EMR, she had a negative stress test performed on November 29, 2016, no evidence of ischemia. Patient does have left upper quadrant abdominal tenderness, this could be pancreatitis versus atypical cholecystitis. CT of the abdomen and pelvis was ordered. CT of the abdomen and pelvis is unremarkable. Laboratory evaluation is unremarkable. The patient is stable for outpatient follow-up. Diagnosis Primary Impression: Abdominal pain Qualified Codes: R10.12 - Left upper quadrant pain Patient Instructions: General Instructions Additional Instructions: Please provide a patient a copy of her CT results and lab results at discharge. Diet as tolerated. Follow-up with her primary physician on an outpatient basis. You may benefit from outpatient endoscopy. Med/Other Pt SpecificInfo: Prescription(s) given Scripts Ranitidine (Zantac) 150 Mg Tab 150 MG PO BID for Reduce Stomach Acid for 14 Days, #28 TAB 0 Refills Prov: Devante Carnes MD 08/10/17 Acetaminophen-Codeine (Tylenol-Codeine #3) 300-30 mg Tab 1 TAB PO Q4H Y for PAIN, #12 TAB 0 Refills Prov: Devante Carnes MD 08/10/17 Disposition: 01 DISCHARGE HOME Condition: Stable Devante Carnes MD Aug 10, 2017 10:12
[2017-08-10 10:23] LABS: AUTOMATED NEUTROPHIL # 2.9 TH/MM3 (1.8-7.7); BASOPHIL % 0.5 % (0.0-2.0); EOSINOPHIL # 0.1 TH/MM3 (0-0.4); EOSINOPHIL % 1.1 % (0.0-4.0); HEMATOCRIT 40.6 % (35.0-46.0); HEMOGLOBIN 13.6 GM/DL (11.6-15.3); LYMPH % 43.2 % (9.0-44.0); LYMPHOCYTE # 2.6 TH/MM3 (1.0-4.8); MEAN CELL VOLUME 87.1 FL (80.0-100.0); MEAN CORPUSCULAR HEMOGLOBIN 29.2 PG (27.0-34.0); MEAN CORPUSCULAR HGB CONC 33.6 % (32.0-36.0); MEAN PLATELET VOLUME 8.5 FL (7.0-11.0); MONO % 7.7 % (0.0-8.0); MONOCYTE # 0.5 TH/MM3 (0-0.9); NEUT % 47.5 % (16.0-70.0); PLATELET COUNT 203 TH/MM3 (150-450); RED BLOOD COUNT 4.67 MIL/MM3 (4.00-5.30); RED CELL DISTRIBUTION WIDTH 14.2 % (11.6-17.2)
[2017-08-10 10:40] LABS: ALBUMIN 3.8 GM/DL (3.4-5.0); ALT (GPT) 104 U/L (10-53); AST (GOT) 59 U/L (15-37); BICARBONATE 26.1 MEQ/L (21.0-32.0); BLOOD UREA NITROGEN 11 MG/DL (7-18); CALCIUM 8.9 MG/DL (8.5-10.1); CHLORIDE 107 MEQ/L (98-107); CREATININE 0.75 MG/DL (0.50-1.00); GLOMERULAR FILTRATION RATE 87 ML/MIN (>89); GLUCOSE,RANDOM 94 MG/DL (74-106); LIPASE 126 U/L (73-393); SODIUM (NA) 140 MEQ/L (136-145)
[2017-08-10 10:44] LABS: ALKALINE PHOSPHATASE 71 U/L (45-117); TOTAL BILIRUBIN ADULT 0.3 MG/DL (0.2-1.0); TOTAL PROTEIN 7.7 GM/DL (6.4-8.2); TROPONIN I LESS THAN 0.02 NG/ML (0.02-0.05)
[2017-08-10 10:48] VITALS: O2SAT 99
--- NOTE | 2017-08-10 10:52 | RADRPT ---
EXAM DATE/TIME: 08/10/2017 10:13 [facility] COMPARISON: No previous studies available for comparison. INDICATIONS : Epigastric pain and shortness of breath. ORAL CONTRAST: No oral contrast ingested. RADIATION DOSE: 9.96 CTDIvol (mGy) MEDICAL HISTORY : None SURGICAL HISTORY : None. ENCOUNTER: Initial ACUITY: 1 day PAIN SCALE: 5/10 LOCATION: epigastric region TECHNIQUE: Volumetric scanning of the abdomen and pelvis was performed. Using automated exposure control and ad justment of the mA and/or kV according to patient size, radiation dose was kept as low as reasonably achievable to obtain optimal diagnostic quality images. DICOM format image data is available electro nically for review and comparison. FINDINGS: LOWER LUNGS: The visualized lower lungs are clear. LIVER: Homogeneous density without lesion for noncontrast technique. There is no dilation of the biliary tr ee. No calcified gallstones. SPLEEN: Normal size without lesion. PANCREAS: Within normal limits. KIDNEYS: Normal in size and shape. There is no mass, stone, or hydronephrosis. ADRENAL GLANDS: Within normal limits. VASCULAR: There is no aortic aneurysm. BOWEL/MESENTERY: The stomach, small bowel, and colon demonstrate no acute abnormality. There is no free intraperitone al air or fluid. ABDOMINAL WALL: Within normal limits. RETROPERITONEUM: There is no lymphadenopathy. BLADDER: No wall thickening or mass. REPRODUCTIVE: Within normal limits. INGUINAL: There is no lymphadenopathy or hernia. MUSCULOSKELETAL: Within normal limits for patient age. CONCLUSION: Negative noncontrast CT abdomen/pelvis. Lenin Espinoza MD on August 10, 2017 at 10:49 Board Certified Radiologist. This report was verified electronically.
[2017-08-10] MEDS ORDERED: TYLETAB34 PO ×2 (12:11)
[2017-08-10] MEDS ORDERED: ZANT150T2 PO ×2 (12:11)
--- NOTE | 2017-08-10 19:04 | EKG ---
Date Performed: 08/10/2017 Time Performed: 09:46:49 PTAGE: 37 years EKG: SINUS BRADYCARDIA BORDERLINE ECG PREVIOUS TRACING : 08/01/2017 17.49 Compared to prior tracing no significant change DOCTOR: Rashaun Bhakta Interpretating Date/Time 08/10/2017 19:01:58
== END 2017-08-10 12:42 | disposition home or self-care (01) ==
LOC: NEPC 09:27
DX: R00.1 Bradycardia, unspecified (principal); R06.02 Shortness of breath; R11.0 Nausea; Z88.0 Allergy status to penicillin
CPT/HCPCS: 74176; 80053; 82550; 83690; 84484; 85025; 93005; 96361; 96374; 96375; 99285; J1885; J2270; J2405; J7030